=== PATIENT | female | born 1960 | race Caucasian/White ===

== ENCOUNTER 2017-03-13 12:10 | Emergency (ER) | payer MEDICARE, MEDICAID ==
--- NOTE | 2017-03-13 12:49 | ED Physician Documentation ---
PD HPI CHEST PAIN - Stated complaint Stated Complaint: CHEST PX, ABD PX - Chief complaint Chief Complaint: Cardiac - History obtained from History obtained from: Patient, Family - History of Present Illness Timing - onset: How many days ago (3) Timing - duration: Seconds (2-3 seconds) Timing - details: Abrupt onset, Intermittant Pain level max: 8 Pain level now: 1 Quality: Sharp Location: Substernal Radiation: Other (non-radiating) Improved by: Nothing Worsened by: Exertion, Inspiration, Eating, Movement, Palpation Associated symptoms: Nausea, Vomiting. No: Shortness of air, Diaphoresis, Feeling faint / dizzy, General Weakness, Palpitations Similar symptoms before: Diagnosis (GERD, [place], Hep C cirrhosis) Recently seen: Not recently seen - Additional information Additional information: Pt also complains of dull epigastric aching, similar to pancreatitis in the past. Review of Systems Constitutional: denies: Fever, Chills Nose: denies: Rhinorrhea / runny nose, Congestion Throat: denies: Sore throat Cardiac: denies: Palpitations, Pedal edema, Calf pain Respiratory: denies: Cough GI: reports: Abdominal Pain, Nausea, Vomiting, Diarrhea (lactulose). 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 - Present Medications Home Medications: Ambulatory Orders Medication Instructions Recorded Confirmed Clonazepam 07/11/16 Morphine ER 15 mg PO DAILY PRN 07/11/16 07/11/16 oxyCODONE [Roxicodone] 10 mg PO DAILY 07/11/16 07/11/16 Metoprolol Tartrate 25 03/13/17 - Allergies Allergies/Adverse Reactions: Allergies Allergy/AdvReac Type Severity Reaction Status Date / Time buspirone HCl * [From BuSpar] Allergy Anaphylaxis Verified 03/13/17 12:23 codeine Allergy Hives Verified 07/11/16 11:40 hydromorphone HCl * Allergy Headache Verified 07/11/16 11:40 [From Dilaudid] nortriptyline Allergy Anaphylaxis Verified 07/11/16 11:40 NSAIDS (Non-Steroidal Allergy Emesis Verified 07/11/16 11:40 Anti-Inflamma Phenothiazines Allergy Hallucinati Verified 07/11/16 11:40 ons sulfamethoxazole Allergy Hives Verified 07/11/16 11:40 [From Bactrim] trimethoprim [From Bactrim] Allergy Hives Verified 07/11/16 11:40 - Social History Does the pt smoke?: Yes Smoking Status: Current every day smoker Does the pt drink ETOH?: No Does the pt have substance abuse?: No PD ED PE NORMAL - Vitals Vital signs reviewed: Yes - General General: Alert and oriented X 3, No acute distress, Well developed/nourished - HEENT HEENT: PERRL, Moist mucous membranes - Neck Neck: Supple, no meningeal sign - Cardiac Cardiac: RRR, Strong equal pulses - Respiratory Respiratory: No respiratory distress, Clear bilaterally - Abdomen Abdomen: Soft, Non distended, Other (TTP epigastric without peritoneal signs) - Back Back: No CVA TTP, No spinal TTP - Derm Derm: Warm and dry, No rash - Extremities Extremities: No edema, No calf tenderness / cord - Neuro Neuro: Alert and oriented X 3 - Psych Psych: Normal mood, Normal affect Results - Vitals Vitals: Vital Signs - 24 hr 03/13/17 03/13/17 03/13/17 12:15 14:48 15:46 Temperature 36.6 C 36.8 C Heart Rate 80 64 78 Respiratory 16 22 20 Rate Blood Pressure 177/94 H 123/77 144/78 H O2 Saturation 97 98 99 Oxygen O2 Source Room air - EKG (time done) 1220 Rate: Rate (enter#) (82) Rhythm: NSR [place]: Normal Intervals: Normal NV QRS: Normal Ischemia: Non specific changes - Labs Labs: Laboratory Tests 03/13/17 03/13/17 03/13/17 12:50 12:50 12:50 WBC 7.0 RBC 4.17 L Hgb 14.0 Hct 40.7 MCV 97.6 MCH 33.5 H MCHC 34.4 RDW 14.0 Plt Count 145 MPV 9.2 Neut # 4.2 Lymph # 2.1 [place] # 0.5 Eos # 0.0 Baso # 0.0 Absolute Nucleated RBC 0.00 Nucleated RBCs 0.0 PT INR APTT Sodium 139 Potassium 4.2 Chloride 106 Carbon Dioxide 22 Anion Gap 11.0 BUN 13 Creatinine 0.9 Estimated GFR (MDRD) 65 L Glucose 114 H Calcium 9.3 Total Bilirubin 0.5 AST 30 ALT 19 Alkaline Phosphatase 76 Troponin I < 0.04 Total Protein 7.6 Albumin 4.7 Globulin 2.9 Albumin/Globulin Ratio 1.6 Lipase 23 Ethyl Alcohol 03/13/17 03/13/17 12:50 14:40 WBC RBC Hgb Hct MCV MCH MCHC RDW Plt Count MPV Neut # Lymph # [place] # Eos # Baso # Absolute Nucleated RBC Nucleated RBCs PT 12.1 INR 1.1 APTT 30.2 Sodium Potassium Chloride Carbon Dioxide Anion Gap BUN Creatinine Estimated GFR (MDRD) Glucose Calcium Total Bilirubin AST ALT Alkaline Phosphatase Troponin I Total Protein Albumin Globulin Albumin/Globulin Ratio Lipase Ethyl Alcohol < 5.0 - Rads (name of study) cxr Radiology: Prelim report reviewed, EMP read contemporaneously, See rad report ( No evidence for acute cardiopulmonary process. Calcified 7 mm density projecting over the medial right base may represent a calcified pulmonary granuloma. Normal heart size. ) PD MEDICAL DECISION MAKING - ED course Complexity details: reviewed results, re-evaluated patient, considered differential (No ST elevation [place], no aortic dissection, no PE, no tension pneumothorax, no aortic aneurysm), d/w patient, d/w family ED course: Patient is a 56-year-old female who presents to the emergency department with atypical chest pain and abdominal pain. The chest pain is sharp and lasts for a few seconds at a time, the abdominal pain is dull, aching and lasts for a few minutes. No acute laboratory findings despite symptoms ongoing for 3 days. No fevers. Tolerating p.o. here well. Abdomen is soft, nontender nondistended on serial exam. No acute findings on EKG or chest x-ray. We will continue supportive care and follow-up with her doctor. Patient counseled regarding signs and symptoms for which I believe and urgent re-evaluation would be necessary. Patient with good understanding of and agreement to plan and is comfortable going home at this time This document was made in part using voice recognition software. While efforts are made to proofread this document, sound alike and grammatical errors may occur. Departure - Departure Disposition: 01 Home, Self Care Clinical Impression: Chest pain Qualifiers: Chest pain type: unspecified Qualified Code(s): R07.9 - Chest pain, unspecified Abdominal pain Qualifiers: Abdominal location: epigastric Qualified Code(s): R10.13 - Epigastric pain Condition: Good Instructions: ED Chest Pain Atypical Unkn Cause, ED Abdominal Pain Unkn Cause Follow-Up: Zeynep Ireland ARNP [Primary Care Provider] - Within 1 week Comments: Return if you worsen. The cause of your symptoms is unclear today. Drink plenty of fluids at home Discharge Date/Time: 03/13/17 15:45
[2017-03-13 12:57] LABS: BASOPHILS % (AUTO) 0.6 %; EOSINOPHILS % (AUTO) 0.5 %; HCT - HEMATOCRIT 40.7 % (37.0-47.0); LYMPHOCYTES # (AUTO) 2.1 10^3/uL (1.5-3.5); LYMPHOCYTES % (AUTO) 30.7 %; MEAN CORPUSCULAR HEMOGLOBIN 33.5 pg (27.0-31.0); MEAN CORPUSCULAR HGB CONC 34.4 g/dL (32.0-36.0); MEAN CORPUSCULAR VOLUME 97.6 fL (81.0-99.0); MEAN PLATELET VOLUME 9.2 fL (7.9-10.8); MONOCYTES # (AUTO) 0.5 10^3/uL (0.0-1.0); MONOCYTES % (AUTO) 7.7 %; NEUTROPHILS # (AUTO) 4.2 10^3/uL (1.5-6.6); NEUTROPHILS % (AUTO) 60.5 %; RED BLOOD COUNT 4.17 10^6/uL (4.20-5.40)
[2017-03-13] MEDS ORDERED: LIDOCAINE VISCOUS 2% 15 ML UDC MM STA (13:04)
[2017-03-13] MEDS ORDERED: MAG HYDROX/AL HYDROX/SIMETH 30 ML UDC PO STA (13:04)
[2017-03-13] MEDS ORDERED: SUCRALFATE 1 GM/10 ML UDC PO STA (13:04)
[2017-03-13] MEDS ORDERED: FAMOTIDINE 20 MG TABLET PO STA (13:04)
[2017-03-13] MEDS ORDERED: MAG HYDROX/AL HYDROX/SIMETH 30 ML UDC ONE (13:12)
[2017-03-13] MEDS ORDERED: FAMOTIDINE 20 MG TABLET ONE (13:12)
[2017-03-13] MEDS ORDERED: LIDOCAINE VISCOUS 2% 15 ML UDC MM ONE (13:12)
[2017-03-13] MEDS ORDERED: SUCRALFATE 1 GM/10 ML UDC ONE (13:13)
--- NOTE | 2017-03-13 13:13 | XRAY Preliminary Report ---
Exam: XR Chest 1 View IMPRESSION: 1. No evidence for acute cardiopulmonary process. 2. Calcified 7 mm density projecting over the medial right base may represent a calcified pulmonary g ranuloma. 3. Normal heart size. [facility] SITE ID: [id number]
--- NOTE | 2017-03-13 13:16 | XRAY Report ---
EXAM: CHEST RADIOGRAPHY EXAM DATE: 03/13/2017 12:52 PM. CLINICAL HISTORY: Chest pain. COMPARISON: None. TECHNIQUE: 1 view. FINDINGS: Lungs/Pleura: Linear basilar opacities could reflect atelectasis. Upper lungs appear clear. Calcific 7 mm density projecting over the medial aspect of the right lung base may represent a calcified granu marvel. No evidence for pleural effusion or pneumothorax. Mediastinum: Heart size and mediastinum are normal. Mild atheromatous calcific aortic arch. Other: Right convex thoracic scoliosis evident. IMPRESSION: 1. No evidence for acute cardiopulmonary process. 2. Calcified 7 mm density projecting over the medial right base may represent a calcified pulmonary g ranuloma. 3. Normal heart size. [facility] Referring Provider Line: [phone] SITE ID: [id number]
[2017-03-13] MEDS ORDERED: MORPHINE 10 MG/ML VIAL ONE ×3 (13:42→14:48)
[2017-03-13 13:54] LABS: ALBUMIN/GLOBULIN RATIO 1.6 (1.0-2.2); BILIRUBIN,TOTAL 0.5 mg/dL (0.2-1.0); CALCIUM 9.3 mg/dL (8.5-10.3); CREATININE 0.9 mg/dL (0.4-1.0); POTASSIUM 4.2 mmol/L (3.5-5.0); TOTAL PROTEIN 7.6 g/dL (6.7-8.2)
[2017-03-13] MEDS ORDERED: MORPHINE 10 MG/ML VIAL IM STA (14:44)
[2017-03-13] MEDS ORDERED: MORPHINE 10 MG/ML VIAL IM SCH (15:00)
[2017-03-13 15:07] LABS: INR 1.1 (0.8-1.2); PT - PROTHROMBIN TIME 12.1 secs (9.9-12.6)
[2017-03-13 15:14] LABS: PARTIAL THROMBOPLASTIN TIME 30.2 secs (24.9-33.3)
[2017-03-13 15:48] VITALS: BP 144/78
== END 2017-03-13 15:45 | disposition home or self-care (01) ==
LOC: ED 12:10
DX: R07.89 Other chest pain (principal); R10.13 Epigastric pain; R11.2 Nausea with vomiting, unspecified; I25.2 Old myocardial infarction; F17.200 Nicotine dependence, unspecified, uncomplicated
CPT/HCPCS: 36415; 71010; 80053; 83690; 84484; 85025; 85610; 85730; 93005; 93010; 96372; 99283; 99284; A9270; G0480; 80320; 82140

== ENCOUNTER 2017-04-08 08:00 | Outpatient (CLI) | payer MEDICARE, MEDICAID ==
[2017-04-15 18:26] LABS: ALPHAHYDROXYALPRAZOLAM NEGATIVE ng/mL (< 25); AMINOCLONAZEPAM 789 ng/mL (< 25); AMPHETAMINES NEGATIVE ng/mL (< 500); BARBITURATES NEGATIVE ng/mL (< 300); BENZODIAZEPINES POSITIVE ng/mL (< 100); CREATININE 126.5 mg/dL (>= 20.0); HYDROXYETHYLFLURAZEPAM NEGATIVE ng/mL (< 50); MARIJUANA METABOLITE NEGATIVE ng/mL (< 20); MEDMATCH AMINOCLONAZEPAM INCONSISTENT (-); MEDMATCH AMPHETAMINES CONSISTENT (-); MEDMATCH AOH-ALPRAZOLAM CONSISTENT (-); MEDMATCH AOH-MIDAZOLAM CONSISTENT (-); MEDMATCH AOH-TRIAZOLAM CONSISTENT (-); MEDMATCH BARBITURATES CONSISTENT (-); MEDMATCH COCAINE METAB CONSISTENT (-); MEDMATCH CODEINE CONSISTENT (-); MEDMATCH HYDROCODONE CONSISTENT (-); MEDMATCH HYDROMORPHONE CONSISTENT (()); MEDMATCH LORAZEPAM CONSISTENT (-); MEDMATCH MARIJUANA METAB CONSISTENT (-); MEDMATCH METHADONE METAB CONSISTENT (-); MEDMATCH MORPHINE CONSISTENT (()); MEDMATCH NORDIAZEPAM CONSISTENT (()); MEDMATCH NORHYDROCODONE CONSISTENT (-); MEDMATCH NOROXYCODONE CONSISTENT (()); MEDMATCH OXAZEPAM CONSISTENT (()); MEDMATCH OXYCODONE METABOLITE CONSISTENT (()); MEDMATCH OXYMORPHONE CONSISTENT (()); MEDMATCH PHENCYCLIDINE CONSISTENT (-); MEDMATCH TEMAZEPAM CONSISTENT (()); METHADONE METABOLITE NEGATIVE ng/mL (< 100); NORHYDROCODONE NEGATIVE ng/mL (< 50); NOROXYCODONE 12705 ng/mL (< 50); OPIATES POSITIVE ng/mL (< 100); OXAZEPAM NEGATIVE ng/mL (< 50); OXIDANT Negative mcg/mL (< 200); OXYCODONE METABOLITE 12540 ng/mL (< 50); PHENCYCLIDINE NEGATIVE ng/mL (< 25); PRESCRIBED DRUG 1 Oxycodone (()); PRESCRIBED DRUG 2 Morphine (()); PRESCRIBED DRUG 3 Valium(TM) (())
== END 2017-04-08 23:59 | disposition home or self-care (01) ==
LOC: LAB.R 08:00
PROVIDERS: ATTEND Nurse Practitioner Family
DX: K74.60 Unspecified cirrhosis of liver (principal)
CPT/HCPCS: 80307; 80346; 80361; 80365

== ENCOUNTER 2017-06-19 13:14 | Outpatient (CLI) | payer MEDICARE, MEDICAID ==
[2017-06-19 13:55] LABS: HEMOGLOBIN A1C 0.57 g/dL
== END 2017-06-19 13:15 | disposition home or self-care (01) ==
LOC: LAB 13:14
PROVIDERS: ATTEND Nurse Practitioner Family
DX: R20.0 Anesthesia of skin (principal); Z79.899 Other long term (current) drug therapy
CPT/HCPCS: 36415; 83036

== ENCOUNTER 2017-09-03 20:00 | Outpatient (CLI) | payer MEDICARE, MEDICAID | END 2017-09-03 20:01 | disposition critical access hospital (66) | LOC: EMS 20:00 | PROVIDERS: ATTEND Surgery | DX: R10.9 Unspecified abdominal pain (principal) | CPT/HCPCS: A0425; A0429 ==

== ENCOUNTER 2018-06-25 09:30 | Outpatient (CLI) | payer MEDICARE, MEDICAID ==
[2018-06-25 17:02] LABS: MUDS CUTOFF CONCENTRATIONS CUTOFF CONC BELOW:
[2018-06-25 17:37] LABS: AMPHETAMINE SCREEN,URINE NEGATIVE (NEGATIVE); BENZODIAZEPINES SCREEN, URINE NEGATIVE (NEGATIVE); COCAINE SCREEN URINE NEGATIVE (NEGATIVE); METHADONE SCREEN, URINE NEGATIVE (NEGATIVE); METHAMPHETAMINES SCREEN, URINE NEGATIVE (NEGATIVE); OPIATE SCREEN, URINE NEGATIVE (NEGATIVE); OXYCODONE SCREEN, URINE POSITIVE (NEGATIVE); PROPOXYPHENE SCREEN, URINE NEGATIVE (NEGATIVE); TRICYCLIC ANTIDEPRESSANT,URINE NEGATIVE (NEGATIVE)
== END 2018-06-25 09:31 | disposition home or self-care (01) ==
LOC: LAB.R 09:30
PROVIDERS: ATTEND Nurse Practitioner Family
DX: Z79.891 Long term (current) use of opiate analgesic (principal)
CPT/HCPCS: 80306

== ENCOUNTER 2018-06-25 10:15 | Outpatient (CLI) | payer MEDICARE, MEDICAID ==
[2018-06-25 17:16] LABS: BASOPHILS % (AUTO) 0.8 %; EOSINOPHILS % (AUTO) 0.5 %; HGB - HEMOGLOBIN 12.6 g/dL (12.0-16.0); LYMPHOCYTES # (AUTO) 1.2 10^3/uL (1.5-3.5); LYMPHOCYTES % (AUTO) 20.6 %; MEAN CORPUSCULAR HEMOGLOBIN 33.1 pg (27.0-31.0); MEAN CORPUSCULAR HGB CONC 33.6 g/dL (32.0-36.0); MEAN CORPUSCULAR VOLUME 98.6 fL (81.0-99.0); MEAN PLATELET VOLUME 9.8 fL (7.9-10.8); MONOCYTES # (AUTO) 0.5 10^3/uL (0.0-1.0); MONOCYTES % (AUTO) 7.8 %; NEUTROPHILS # (AUTO) 4.1 10^3/uL (1.5-6.6); NEUTROPHILS % (AUTO) 70.3 %; PLT - PLATELET COUNT 146 10^3/uL (130-450); RED CELL DISTRIBUTION WIDTH 13.3 % (12.0-15.0); WHITE BLOOD COUNT 5.9 x10^3/uL (4.8-10.8)
[2018-06-25 17:30] LABS: ALBUMIN 4.5 g/dL (3.2-5.5); ALBUMIN/GLOBULIN RATIO 1.7 (1.0-2.2); ALKALINE PHOSPHATASE 64 IU/L (42-121); ALT ALANINE AMINOTRANSFERASE 19 IU/L (10-60); AST ASPARTATE AMINOTRANSFERASE 26 IU/L (10-42); BILIRUBIN,TOTAL 0.7 mg/dL (0.2-1.0); BUN - BLOOD UREA NITROGEN 11 mg/dL (6-20); CALCIUM 9.1 mg/dL (8.5-10.3); CARBON DIOXIDE - CO2 23 mmol/L (21-32); CHLORIDE 105 mmol/L (101-111); CHOL/HDL RATIO 2.1 (<4.4); CHOLESTEROL 143 mg/dL; CREATININE 0.7 mg/dL (0.4-1.0); GFR - MDRD 87 (>89); GLUCOSE 95 mg/dL (70-100); HDL CHOLESTEROL 68 mg/dL; LDL CHOLESTEROL,CALCULATED 60 mg/dL; LDL/HDL RATIO 0.9 (<4.4); SODIUM 137 mmol/L (135-145); TOTAL PROTEIN 7.2 g/dL (6.7-8.2); VLDL CHOLESTEROL 15 mg/dL
== END 2018-06-25 10:16 | disposition home or self-care (01) ==
LOC: LAB.F 10:15
PROVIDERS: ATTEND Nurse Practitioner Family
DX: I10 Essential (primary) hypertension (principal); E78.5 Hyperlipidemia, unspecified; Z79.891 Long term (current) use of opiate analgesic
CPT/HCPCS: 36415; 80053; 80061; 80306; 83721; 84443; 85025

== ENCOUNTER 2019-03-24 08:00 | Outpatient (CLI) | payer MEDICARE, MEDICAID ==
[2019-03-24 20:35] LABS: MUDS CUTOFF CONCENTRATIONS CUTOFF CONC BELOW:
[2019-03-24 20:56] LABS: AMPHETAMINE SCREEN,URINE NEGATIVE (NEGATIVE); BENZODIAZEPINES SCREEN, URINE NEGATIVE (NEGATIVE); COCAINE SCREEN URINE NEGATIVE (NEGATIVE); METHADONE SCREEN, URINE NEGATIVE (NEGATIVE); METHAMPHETAMINES SCREEN, URINE NEGATIVE (NEGATIVE); OPIATE SCREEN, URINE NEGATIVE (NEGATIVE); OXYCODONE SCREEN, URINE NEGATIVE (NEGATIVE); PROPOXYPHENE SCREEN, URINE NEGATIVE (NEGATIVE); TRICYCLIC ANTIDEPRESSANT,URINE NEGATIVE (NEGATIVE)
== END 2019-03-24 23:59 | disposition home or self-care (01) ==
LOC: LAB.R 08:00
PROVIDERS: ATTEND Nurse Practitioner Family
DX: Z79.891 Long term (current) use of opiate analgesic (principal)
CPT/HCPCS: 80306

== ENCOUNTER 2019-08-11 15:13 | Emergency (ER) | payer MEDICARE, MEDICAID ==
[2019-08-11 15:50] VITALS: BP 148/73
--- NOTE | 2019-08-11 16:17 | XRAY Report ---
Reason: ankle inj Procedure Date: 08/11/2019 Accession Number: [id number] / [id number] Procedure: XR - Ankle 3 View RT CPT Code: FULL RESULT: EXAM: RIGHT ANKLE RADIOGRAPHY EXAM DATE: 08/11/2019 03:59 PM. CLINICAL HISTORY: Ankle inj. COMPARISON: None. TECHNIQUE: 3 views. FINDINGS: Bones: Normal. No fractures or bone lesions. Joints: Normal. No effusion. No subluxations. The ankle mortise is normally aligned. Soft Tissues: Mild soft tissue swelling overlying right lateral malleolus. IMPRESSION: Mild soft tissue swelling overlying right lateral malleolus. No acute displaced fracture or malalignment. [facility]
--- NOTE | 2019-08-11 17:11 | ED Physician Documentation ---
PD HPI LOWER EXT INJURY - Stated complaint Stated Complaint: ROLLED RT ANKLE - Chief complaint Chief Complaint: Trauma Ext - History obtained from History obtained from: Patient - History of Present Illness PD HPI LOW EXT INJURY LOCATION: Ankle (She fell and hurt her ankle last night. It inverted on her. She also hurt her back. Its not severe. The ankle hurts worse. 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 - Present Medications Home Medications: Ambulatory Orders Medication Instructions Recorded Confirmed Morphine ER 15 mg PO DAILY PRN 07/11/16 07/11/16 clonazePAM [Clonazepam] 07/11/16 oxyCODONE [Roxicodone] 10 mg PO DAILY 07/11/16 07/11/16 Metoprolol Tartrate 25 03/13/17 oxyCODONE [Roxicodone] 5 mg PO Q4-6H PRN #10 tablet 08/11/19 - Allergies Allergies/Adverse Reactions: Allergies Allergy/AdvReac Type Severity Reaction Status Date / Time buspirone HCl * [From BuSpar] Allergy Anaphylaxis Verified 08/11/19 15:46 codeine Allergy Hives Verified 08/11/19 15:46 hydromorphone HCl * Allergy Headache Verified 08/11/19 15:46 [From Dilaudid] nortriptyline Allergy Anaphylaxis Verified 08/11/19 15:46 NSAIDS (Non-Steroidal Allergy Emesis Verified 08/11/19 15:46 Anti-Inflamma Phenothiazines Allergy Hallucinati Verified 07/11/16 11:40 ons sulfamethoxazole Allergy Hives Verified 08/11/19 15:46 [From Bactrim] trimethoprim [From Bactrim] Allergy Hives Verified 08/11/19 15:46 - Social History Does the pt smoke?: Yes Smoking Status: Current every day smoker Does the pt drink ETOH?: No Does the pt have substance abuse?: No - POLST Patient has POLST: No PD ED PE NORMAL - Vitals Vital signs reviewed: Yes - General General: Alert and oriented X 3, No acute distress - Extremities Extremities: Other (She is tender and swollen over the lateral malleolus of the right ankle. No limited range of motion. No foot or proximal fibular tenderness. There is no spinal tenderness.) - Neuro Neuro: Alert and oriented X 3, Normal speech Results - Vitals Vitals: Vital Signs - 24 hr 08/11/19 15:46 Temperature 36.9 C Heart Rate 67 Respiratory 16 Rate Blood Pressure 148/73 H O2 Saturation 99 Oxygen O2 Source Room air - Rads (name of study) Three-view x-ray of the right ankle Radiology: EMP read contemporaneously (Soft tissue swelling, no fracture) Departure - Departure Disposition: 01 Home, Self Care Clinical Impression: Right ankle sprain Qualifiers: Encounter type: initial encounter Involved ligament of ankle: anterior talofibular ligament Qualified Code(s): S93.491A - Sprain of other ligament of right ankle, initial encounter Condition: Good Record reviewed to determine appropriate education?: Yes Instructions: ED Sprain Ankle W X Ray Prescriptions: oxyCODONE [Roxicodone] 5 mg PO Q4-6H PRN #10 tablet PRN Reason: Pain Comments: Follow-up with your doctor in a week if not better, return for new worsening symptoms. Do not drink or drive while taking narcotic pain medication. Note that many narcotic pain relievers also contain Tylenol/acetaminophen. Please ensure that your total dose of acetaminophen from all sources does not exceed 3 g (3000 mg) per day. You may get constipated while on this medication. Take a stool softener such as Colace twice a day while you are on it. Also add an [id number] laxative such as senna or MiraLAX on any day that you do not have a bowel movement. If you received a narcotic pain medication or sedative while in the emergency department, do not drive for the next 24 hours. Your blood pressure was elevated today on check into the emergency department. This does not mean that you have hypertension, it is a common phenomenon to come to the emergency department and have elevated blood pressure. I recommend that you see your primary care physician within the week to have it rechecked when you are feeling better.
[2019-08-11] MEDS ORDERED: oxyCODONE 5 MG TABLET PO STA (17:13)
== END 2019-08-11 17:51 | disposition home or self-care (01) ==
LOC: ED 15:13
DX: S93.491A Sprain of other ligament of right ankle, initial encounter (principal); M54.9 Dorsalgia, unspecified; X50.1XXA Overexertion from prolonged static or awkward postures, initial encounter; W10.8XXA Fall (on) (from) other stairs and steps, initial encounter; Y93.01 Activity, walking, marching and hiking; R03.0 Elevated blood-pressure reading, without diagnosis of hypertension; F17.200 Nicotine dependence, unspecified, uncomplicated
CPT/HCPCS: 73610; 99283; A9270

== ENCOUNTER 2020-08-14 08:05 | Outpatient (CLI) | payer MEDICARE, MEDICAID | END 2020-08-14 08:06 | disposition short-term general hospital (02) | LOC: EMS 08:05 | PROVIDERS: ATTEND Surgery | DX: R10.9 Unspecified abdominal pain (principal) | CPT/HCPCS: A0425; A0427 ==

== ENCOUNTER 2020-08-18 12:48 | Outpatient (CLI) | payer MEDICARE, MEDICAID | END 2020-08-18 12:49 | disposition short-term general hospital (02) | LOC: EMS 12:48 | PROVIDERS: ATTEND Surgery | DX: R10.9 Unspecified abdominal pain (principal) | CPT/HCPCS: A0425; A0429 ==